=== PATIENT | male | born 1955 | race Caucasian/White ===

== ENCOUNTER 2020-04-01 20:57 | Inpatient (IN) | payer BC, SELFPAY ==
[~2020-04-01] VITALS: Ht 188 cm; Wt 95.0 kg
[~2020-04-01 20:57] MED LIST: AMA1T PO; ASPI-1265 PO; CARI350T PO; METF500T PO; NORCO10T PO; PER10325T PO; PIOG45TA PO; TEST5GEL6 TD; ZOC40T PO
[2020-04-01] MEDS ORDERED: GLIM4TAB7 PO (21:32)
[2020-04-01] MEDS ORDERED: LANS30CA56 PO (21:32)
[2020-04-01] MEDS ORDERED: TADA10TA PO (21:32)
[2020-04-01] MEDS ORDERED: FLUT25PO12 IH (21:32)
[2020-04-01] MEDS ORDERED: DULA1.5P PO (21:32)
[2020-04-01] MEDS ORDERED: EMPA10TA PO (21:32)
[2020-04-01] MEDS ORDERED: AZEL137S4 BOTHNARES (21:32)
[2020-04-01] MEDS ORDERED: normal saline 1000ML IV soln IVB ONE (21:45)
--- NOTE | 2020-04-01 21:49 | NUR ---
RT AT BEDSIDE TO INITIATE ABG.
--- NOTE | 2020-04-01 21:55 | NUR ---
XR AT BEDSIDE
--- NOTE | 2020-04-01 21:56 | NUR ---
EKG read by MD Kaur @ 2156 - @ [facility]
[2020-04-01] MEDS ORDERED: azithromycin/NS 500mg/250ml 250 ML IV ONE (22:05)
[2020-04-01] MEDS ORDERED: CefTRIAXone/D5W-Rocephin 1gm 50 ML IV ONE (22:05)
[2020-04-01 22:07] LABS: BASOPHILS % (AUTO) 0.3 % (0-1); EOSINOPHILS % (AUTO) 0 % (0-6); HEMATOCRIT 41.4 % (42.0-52.0); HEMOGLOBIN 13.6 g/dl (14.0-17.9); LYMPHOCYTES # (AUTO) 0.3 X10'3 (1.1-4.8); LYMPHOCYTES % (AUTO) 2.8 % (21-51); MEAN CORPUSCULAR HEMOGLOBIN 26.7 PG (27.0-31.0); MEAN CORPUSCULAR HGB CONC 32.8 g/dL (33.0-36.5); MEAN CORPUSCULAR VOLUME 81.3 FL (78-98); MEAN PLATELET VOLUME 8.4 FL (7.4-10.4); MONOCYTES # (AUTO) 0.9 X10'3 (0-0.9); MONOCYTES % (AUTO) 7.9 % (2-12); NEUTROPHILS # (AUTO) 9.6 X10'3 (1.8-7.7); PLATELET COUNT 189 X10'3 (140-440); WHITE BLOOD COUNT 10.8 X10'3 (4.5-11.0)
[2020-04-01] MEDS ORDERED: normal saline 1000ml 1,000 ML IV ONE (22:10)
[2020-04-01 22:16] LABS: PARTIAL THROMBOPLASTIN TIME 34 SECONDS (22-32)
[2020-04-01 22:19] LABS: ALANINE AMINOTRANSFERASE 63 U/L (12-78); ALBUMIN/GLOBULIN RATIO 0.8 (1.1-1.5); ALKALINE PHOSPHATASE 63 IU/L (46-116); ANION GAP 8 (8-16); ASPARTATE AMINO TRANSFERASE 47 U/L (10-37); BILIRUBIN,TOTAL 0.6 MG/DL (0.1-1.0); BLOOD UREA NITROGEN 22 MG/DL (7-18); BUN/CREATININE RATIO 15.5 (5.4-32.0); CALCIUM 8.4 MG/DL (8.5-10.1); CHLORIDE 96 MMOL/L (99-107); CREATININE 1.42 MG/DL (0.60-1.10); GLUCOSE 277 MG/DL (70-104); POTASSIUM 4.4 MMOL/L (3.5-5.1); SODIUM 131 MMOL/L (135-145); TOTAL CARBON DIOXIDE 27.2 MMOL/L (24-32); TOTAL PROTEIN 6.6 G/DL (6.4-8.2); eGFR 50 ML/MIN
[2020-04-01 22:20] LABS: ABG HCO3 23.6 mmol/L (22.0-26.0); ABG OXYGEN SATURATION 97.1 % (95-98); ABG PCO2 (T) 41.4 mmHg (35.0-45.0); ABG PH (T) 7.379 (7.350-7.450); ABG PO2 (T) 100.8 mmHg (83-108); ALLEN'S TEST POSITIVE; FCOHb 0.8 % (0.5-1.5); FO2Hb 96.3 % (94-100); PATIENT TEMPERATURE 38.4; RESPIRATORY RATE 18 b/min; TOTAL HEMOGLOBIN 13.7 G/dl (14.0-17.9)
--- NOTE | 2020-04-01 22:22 | NUR ---
PT UNDERSTANDS NEED FOR URINE COLLECTION.
[2020-04-01 22:44] LABS: CLARITY,URINE CLEAR (Clear); COLOR,URINE YELLOW (Yellow); GLUCOSE, URINE >=1000 mg/dl (Neg); KETONES,URINE 15 mg/dl (Neg); LEUKOCYTE ESTERASE ,URINE NEGATIVE (Neg); NITRITES, URINE NEGATIVE (Neg); OCCULT BLOOD,URINE MODERATE (Neg); PROTEIN,URINE 30 mg/dl (Neg); UROBILINOGEN,URINE 0.2 E.U/dL (0.2-1.0)
[2020-04-01 22:49] LABS: UA COLLECTION TYPE CLN CATCH MIDSTREAM
[2020-04-01 22:51] LABS: BACTERIA,URINE NONE SEEN /HPF (Neg); WBC,URINE 0-4 /HPF (0-4)
[2020-04-01 22:52] LABS: RENAL CELLS, URINE FEW /HPF; SQUAMOUS EPITHELIAL CELL,UR FEW /LPF (FEW)
[2020-04-01] MEDS: normal saline 1000ml 1,000 ML IV SCH (23:28)
[2020-04-01] MEDS ORDERED: potassium CL 10mEq/100ml bag 100 ML IV PRN ×2 (23:30)
[2020-04-01] MEDS ORDERED: magnesium hydroxide 30ml (MOM) UD suspension PO PRN (23:30)
[2020-04-01] MEDS ORDERED: potassium Cl 20 mEq SR tablet PO PRN ×2 (23:30)
[2020-04-01] MEDS ORDERED: ondansetron/PF 4mg/2ml inj IV PRN (23:30)
[2020-04-01] MEDS ORDERED: acetaminophen 325mg tablet PO PRN (23:30)
[2020-04-01] MEDS ORDERED: mag hydrox/Alum hydrox/simeth 30ml oral suspension PO PRN (23:30)
[2020-04-01] MEDS ORDERED: oxyCODONE/APAP 10/325mg tablet PO PRN (23:35)
[2020-04-01] MEDS ORDERED: MESSAGE TO PHARMACY PO ONE (23:35)
[2020-04-01] MEDS ORDERED: dextrose 50%-water 50ml dispensing syringe IV PRN ×2 (23:35)
[2020-04-01] MEDS ORDERED: dextrose ORAL solution 15 GM/59 ML bottle PO PRN ×2 (23:35)
[2020-04-01] MEDS ORDERED: glucagon, human recombinant 1mg kit SUBCUT PRN (23:35)
[2020-04-01] MEDS ORDERED: insulin Lispro (HumaLOG) vial - multi-dose SQ SCH (23:35)
[2020-04-01] MEDS ORDERED: HYDROcodone/acetaminophen 10/325mg tab PO PRN (23:35)
--- NOTE | 2020-04-01 23:35 | NUR ---
RAPID CORONAVIRUS SWAB COMPLETED AND SUBMITTED TO LABORATORY.
[2020-04-01 23:57] LABS: HEMOGLOBIN A1C 7.3 % (4.5-6.2)
[2020-04-02] VITALS (7 sets, daily range): BP systolic 129–165; BP diastolic 62–77
--- NOTE | 2020-04-02 03:37 | NUR ---
Patient did not want to wear Cpap/Bipap tonight
[2020-04-02] MEDS ORDERED: guaiFENesin/DM/phenylephrine syrup 120ml bottle PO PRN (03:40)
[2020-04-02] MEDS ORDERED: guaiFENesin/DM 10ml UD oral syrup PO PRN (04:10)
[2020-04-02] MEDS: guaiFENesin 200 MG/10 ML oral syrup UD cup PO PRN (04:17)
[2020-04-02 05:55] LABS: BASOPHILS % (AUTO) 0.1 % (0-1); EOSINOPHILS % (AUTO) 0 % (0-6); HEMATOCRIT 40.3 % (42.0-52.0); HEMOGLOBIN 13.1 g/dl (14.0-17.9); LYMPHOCYTES # (AUTO) 0.4 X10'3 (1.1-4.8); LYMPHOCYTES % (AUTO) 4.6 % (21-51); MEAN CORPUSCULAR HEMOGLOBIN 26.5 PG (27.0-31.0); MEAN CORPUSCULAR HGB CONC 32.6 g/dL (33.0-36.5); MEAN CORPUSCULAR VOLUME 81.4 FL (78-98); MEAN PLATELET VOLUME 8.3 FL (7.4-10.4); MONOCYTES # (AUTO) 0.7 X10'3 (0-0.9); MONOCYTES % (AUTO) 7.1 % (2-12); NEUTROPHILS # (AUTO) 8.2 X10'3 (1.8-7.7); NEUTROPHILS % (AUTO) 88.2 % (42-75); PLATELET COUNT 195 X10'3 (140-440); RED BLOOD COUNT 4.95 X10'6 (4.70-6.10); RED CELL DISTRIBUTION WIDTH 15.8 % (11.5-14.5); WHITE BLOOD COUNT 9.3 X10'3 (4.5-11.0)
[2020-04-02 06:03] LABS: ALANINE AMINOTRANSFERASE 74 U/L (12-78); ALBUMIN 2.7 G/DL (3.4-5.0); ALBUMIN/GLOBULIN RATIO 0.7 (1.1-1.5); ALKALINE PHOSPHATASE 56 IU/L (46-116); ANION GAP 9 (8-16); ASPARTATE AMINO TRANSFERASE 59 U/L (10-37); BILIRUBIN,TOTAL 0.5 MG/DL (0.1-1.0); BLOOD UREA NITROGEN 18 MG/DL (7-18); BUN/CREATININE RATIO 14.6 (5.4-32.0); CHLORIDE 101 MMOL/L (99-107); CREATININE 1.23 MG/DL (0.60-1.10); GLUCOSE 139 MG/DL (70-104); POTASSIUM 4.5 MMOL/L (3.5-5.1); SODIUM 138 MMOL/L (135-145); TOTAL CARBON DIOXIDE 27.7 MMOL/L (24-32); TOTAL PROTEIN 6.4 G/DL (6.4-8.2); eGFR 59 ML/MIN
--- NOTE | 2020-04-02 06:19 | NUR ---
Problems reprioritized. Patient report given, questions answered & plan of care reviewed with ATILIO Rothman.
--- NOTE | 2020-04-02 06:20 | NUR ---
Patient in room PCU 3013B. I have received report from Felicita TRIMBLE and had the opportunity to ask questions and assume patient care. Patient laying in bed, awake, alert, texting on cell phone, no signs of distress, no complaints at this time. Will continue to monitor.
[2020-04-02] MEDS: K and/or MAG REPLACEMENT MC SCH ×4 (08:00→20:00)
[2020-04-02] MEDS ORDERED: azelastine Nasal Spray bottle NS SCH (08:00)
[2020-04-02] MEDS ORDERED: CefTRIAXone/D5W-Rocephin 1gm 50 ML IV SCH (08:00)
[2020-04-02] MEDS ORDERED: azithromycin 250mg tablet PO SCH (08:00)
--- NOTE | 2020-04-02 08:08 | NUR ---
PAGER ID: [phone] MESSAGE: Lorna Michel jamar [phone]. RE Abhijit Hubbard FTI patient is having 5-7 beat runs of v tach as well as consistent ventricular ectopy/bigeminy. Pt asymptomatic. HR 120-150's. Order is for 24 hr tele. Any interventions? Can we extend tele order? Thanks!
[2020-04-02] MEDS: fluticasone nasal spray 16GM bottle NS SCH (08:25)
[2020-04-02] MEDS: heparin, porcine 5000 units/ml vial SQ SCH ×2 (08:26→19:12)
[2020-04-02] MEDS: atorvastatin 20mg tablet PO SCH (08:26)
[2020-04-02] MEDS: aspirin 81mg tab.chew PO SCH (08:26)
[2020-04-02] MEDS: pantoprazole 40mg Tablet.DR PO SCH (08:26)
[2020-04-02] MEDS ORDERED: magnesium 4gm in 100ml NS 100 ML IV PRN (09:50)
[2020-04-02] MEDS ORDERED: magnesium Cl slow-release 64mg tablet PO PRN (09:50)
[2020-04-02] MEDS: levoFLOXACIN-Levaquin 750MG/D5 150 ML IV SCH (10:18)
[2020-04-02] MEDS: normal saline 1000ml 1,000 ML IV SCH (10:18)
[2020-04-02] MEDS ORDERED: metoprolol succinate 25mg (24-HOUR) SR. Tablet PO ONE (11:10)
--- NOTE | 2020-04-02 12:00 | NUR ---
PATIENT WAS STANDING UP USING THE URINAL, ATTEMPTED TO TAKE A FEW STEPS AND STUMBLED INTO THE WALL. HE WAS ABLE TO CATCH HIMSELF ON THE WALL AND DID NOT FALL TO THE GROUND OR HIT HIS HEAD. THIS WAS WITNESSED BY EVS AND [employer] SUPERVISOR THAT WERE IN THE ROOM AT THIS TIME. PATIENT ASSISTED BACK TO BED, GIVEN CLEAN GOWN. PATIENT IS AWAKE, ALERT, ORIENTED BUT IS SLIGHTLY FORGETFUL AND DOES NOT ASK FOR ASSISTANCE. EXPLAINED TO PATIENT THAT HE NEEDS TO CALL FOR HELP AND CANNOT WALK AROUND BY HIMSELF. PATIENT UNDERSTANDS. [employer] MEMBER[employer], NOTIFIED AT THIS TIME WELL AND I HAVE REQUESTED TO MOVE PATIENT TO ROOM CLOSER TO NURSING STATION. PENDING MOVEMENT TO CLEAN ROOM AT THIS TIME. CALL LIGHT AND ALL ITEMS IN REACH, FREQUENT ROUNDING IN PLACE.
--- NOTE | 2020-04-02 15:52 | NUR ---
Pt with T2DM, current A1c is 7.3%. Attempted visit with patient at bedside however pt unavailable. Will f/u at another time for DM education. Addendum: 04/02/20 at [address] Amended: Links added.
--- NOTE | 2020-04-02 18:20 | NUR ---
Problems reprioritized. Patient report given, questions answered & plan of care reviewed with Star RN.
--- NOTE | 2020-04-02 18:26 | NUR ---
Patient in room PCU 3013. I have received report from Lorna Adams RN and had the opportunity to ask questions and assume patient care.
--- NOTE | 2020-04-02 18:52 | NUR ---
INSULIN HELD pt had a BS of 209 with lunch, pt was then given only 3 units of insulin (pt stated that he does not take insulin at home and the dose was reduced for safety concerns) and the dinner BS was 148. discussed these findings with charge nurse and due to this patients apparent sensitivity to insulin we will restart protocol and wait for the pt to re-qualify. Addendum: 04/02/20 at 0 by Mk Cisneros RN spoke with pt in detail, he states that he takes a diabetic medication once per week and he stated that he takes it on fridays. this may explain the drastic drop in BS with little insulin. he does not remember the name of this medication.
[2020-04-02] MEDS: lactobacillus rhamnosus 10,000 MMU CELLS/CAPSULE PO SCH (19:12)
[2020-04-02] MEDS ORDERED: insulin glargine (Lantus) pen - multi-dose SQ SCH (21:00)
[2020-04-03] MEDS: normal saline 1000ml 1,000 ML IV SCH ×2 (00:48→11:53)
[2020-04-03 03:00] VITALS: BP 133/79
--- NOTE | 2020-04-03 03:26 | NUR ---
LATE ENTRY. Patient did not want to wear hospital bipap tonight wants to wait for family to bring in his unit.
--- NOTE | 2020-04-03 05:58 | NUR ---
PT CONFUSION pt has been intermittently confused since about midnight. pt becomes confused, when pt is made aware of his strange behavior he quickly reorients himself, when asked orientation questions he answers all questions appropriately.
[2020-04-03 06:00] VITALS: BP 137/70
--- NOTE | 2020-04-03 06:19 | NUR ---
Problems reprioritized. Patient report given, questions answered & plan of care reviewed with Lorna Adams RN.
--- NOTE | 2020-04-03 06:20 | NUR ---
Patient in room PCU 3013B. I have received report from [facility] RN and had the opportunity to ask questions and assume patient care. Patient laying in bed, awake, alert, wants to go home, no complaints of pain, no signs of distress at this time.
[2020-04-03 06:26] LABS: BASOPHILS % (AUTO) 0.2 % (0-1); EOSINOPHILS % (AUTO) 0 % (0-6); HEMOGLOBIN 12.2 g/dl (14.0-17.9); LYMPHOCYTES # (AUTO) 0.4 X10'3 (1.1-4.8); LYMPHOCYTES % (AUTO) 4.2 % (21-51); MEAN CORPUSCULAR HEMOGLOBIN 26.3 PG (27.0-31.0); MEAN CORPUSCULAR HGB CONC 32.2 g/dL (33.0-36.5); MEAN CORPUSCULAR VOLUME 81.6 FL (78-98); MEAN PLATELET VOLUME 8.6 FL (7.4-10.4); MONOCYTES % (AUTO) 10.1 % (2-12); NEUTROPHILS # (AUTO) 8.3 X10'3 (1.8-7.7); NEUTROPHILS % (AUTO) 85.5 % (42-75); PLATELET COUNT 199 X10'3 (140-440); RED BLOOD COUNT 4.66 X10'6 (4.70-6.10); RED CELL DISTRIBUTION WIDTH 16.1 % (11.5-14.5); WHITE BLOOD COUNT 9.8 X10'3 (4.5-11.0)
[2020-04-03 06:31] LABS: ALANINE AMINOTRANSFERASE 76 U/L (12-78); ALBUMIN 2.4 G/DL (3.4-5.0); ALBUMIN/GLOBULIN RATIO 0.8 (1.1-1.5); ALKALINE PHOSPHATASE 58 IU/L (46-116); ANION GAP 12 (8-16); ASPARTATE AMINO TRANSFERASE 55 U/L (10-37); BILIRUBIN,TOTAL 0.5 MG/DL (0.1-1.0); BLOOD UREA NITROGEN 17 MG/DL (7-18); BUN/CREATININE RATIO 14.4 (5.4-32.0); CALCIUM 8.1 MG/DL (8.5-10.1); CHLORIDE 100 MMOL/L (99-107); CREATININE 1.18 MG/DL (0.60-1.10); GLUCOSE 158 MG/DL (70-104); MAGNESIUM 2.3 MG/DL (1.5-2.4); PHOSPHORUS 1.8 MG/DL (2.3-4.5); POTASSIUM 4.6 MMOL/L (3.5-5.1); SODIUM 134 MMOL/L (135-145); TOTAL CARBON DIOXIDE 22.3 MMOL/L (24-32); TOTAL PROTEIN 5.6 G/DL (6.4-8.2); eGFR 62 ML/MIN
[2020-04-03] MEDS: levoFLOXACIN-Levaquin 750MG/D5 150 ML IV SCH (07:55)
[2020-04-03] MEDS: aspirin 81mg tab.chew PO SCH (07:56)
[2020-04-03] MEDS: pantoprazole 40mg Tablet.DR PO SCH (07:56)
[2020-04-03] MEDS: fluticasone nasal spray 16GM bottle NS SCH (07:56)
[2020-04-03] MEDS: atorvastatin 20mg tablet PO SCH (07:56)
[2020-04-03] MEDS: lactobacillus rhamnosus 10,000 MMU CELLS/CAPSULE PO SCH (07:57)
[2020-04-03] MEDS ORDERED: metoprolol succinate 25mg (24-HOUR) SR. Tablet PO SCH (08:00)
[2020-04-03] MEDS: K and/or MAG REPLACEMENT MC SCH ×2 (08:00)
[2020-04-03] MEDS: heparin, porcine 5000 units/ml vial SQ SCH (08:01)
[2020-04-03] MEDS: guaiFENesin 200 MG/10 ML oral syrup UD cup PO PRN (08:10)
[2020-04-03 11:00] VITALS: BP 154/73
[2020-04-03] MEDS ORDERED: METO-395 PO (13:29)
[2020-04-03] MEDS ORDERED: GUAI100L97 PO (13:29)
[2020-04-03] MEDS ORDERED: LACT1CAP26 PO (13:29)
[2020-04-03] MEDS ORDERED: LEVO750T46 PO (13:29)
--- NOTE | 2020-04-03 14:40 | NUR ---
Per MD order by Dr. Becerra, patient is stable for discharge home. Discharge packet printed and reviewed with the patient. New prescriptions sent to pharmacy of choice. IV removed and tele monitor removed. Discharge packet, return precautions, and follow up discussed with patient, all questions answered. All belongings sent with patient. Patient escorted via wheelchair to private vehicle to go home with family.
[2020-04-04] MEDS ORDERED: levoFLOXACIN 750MG TABLET PO SCH (08:00)
== END 2020-04-03 14:45 | disposition home or self-care (01) | DRG 195 ==
LOC: ER 20:59 → ED HOLD 23:28 → PCU 3S 04-02 00:50
PROVIDERS: ADMIT Internal Medicine; ATTEND Family Medicine
DX: J15.9 Unspecified bacterial pneumonia (principal); E11.9 Type 2 diabetes mellitus without complications; E78.5 Hyperlipidemia, unspecified; Z20.828 Contact with and (suspected) exposure to other viral communicable diseases; G47.33 Obstructive sleep apnea (adult) (pediatric); M54.9 Dorsalgia, unspecified; Z87.891 Personal history of nicotine dependence; Z88.8 Allergy status to other drugs, medicaments and biological substances; Z79.899 Other long term (current) drug therapy
CPT/HCPCS: 36415; 36600; 71045; 80053; 81001; 82803; 82948; 83036; 83605; 83735; 83880; 84100; 84145; 84484; 85018; 85025; 85610; 85730; 87040; 87081; 87502; 87503; 87635; 92508; 92616; 93005; 94668; 96365; 96375; 99285; G0378; J0456; J0696; J1644; J1815; J1956; J7030

== ENCOUNTER 2020-10-27 22:21 | Emergency (ER) | payer MEDICARE, BC ==
[~2020-10-27] VITALS: Ht 188 cm; Wt 93.2 kg
[~2020-10-27 22:21] MED LIST changes: -AMA1T PO; -CARI350T PO; +DULA1.5P PO; +EMPA10TA PO; +FLUT25PO12 IH; +GLIM4TAB7 PO; +GUAI100L97 PO; +LACT1CAP26 PO; +LANS30CA56 PO; +LEVO750T46 PO; +METO-395 PO; -PER10325T PO; -PIOG45TA PO; +TADA10TA PO; -TEST5GEL6 TD
[2020-10-27] MEDS ORDERED: diazepam inj 5 MG/ML inj. IV ONE (23:40)
[2020-10-27] MEDS ORDERED: ketorolac tromethamine 15mg/ml inj. IM ONE (23:40)
[2020-10-28 00:22] LABS: BASOPHILS % (AUTO) 0.1 % (0-1); EOSINOPHILS % (AUTO) 0.1 % (0-6); HEMATOCRIT 45.4 % (42.0-52.0); HEMOGLOBIN 14.9 g/dl (14.0-17.9); LYMPHOCYTES # (AUTO) 0.9 X10'3 (1.1-4.8); LYMPHOCYTES % (AUTO) 8.6 % (21-51); MEAN CORPUSCULAR HEMOGLOBIN 27.3 PG (27.0-31.0); MEAN CORPUSCULAR HGB CONC 32.8 g/dL (33.0-36.5); MEAN CORPUSCULAR VOLUME 83.1 FL (78-98); MEAN PLATELET VOLUME 8.9 FL (7.4-10.4); MONOCYTES # (AUTO) 1.2 X10'3 (0-0.9); MONOCYTES % (AUTO) 12.3 % (2-12); NEUTROPHILS # (AUTO) 7.9 X10'3 (1.8-7.7); NEUTROPHILS % (AUTO) 78.9 % (42-75); PLATELET COUNT 168 X10'3 (140-440); RED BLOOD COUNT 5.46 X10'6 (4.70-6.10); RED CELL DISTRIBUTION WIDTH 16.4 % (11.5-14.5)
[2020-10-28 00:25] LABS: ALANINE AMINOTRANSFERASE 25 U/L (12-78); ALBUMIN/GLOBULIN RATIO 1.4 (1.1-1.5); ALKALINE PHOSPHATASE 67 IU/L (46-116); ANION GAP 7 (8-16); ASPARTATE AMINO TRANSFERASE 15 U/L (10-37); BILIRUBIN,TOTAL 0.7 MG/DL (0.1-1.0); BLOOD UREA NITROGEN 17 MG/DL (7-18); BUN/CREATININE RATIO 18.7 (5.4-32.0); CALCIUM 9.3 MG/DL (8.5-10.1); CHLORIDE 104 MMOL/L (99-107); CREATININE 0.91 MG/DL (0.60-1.10); GLUCOSE 129 MG/DL (70-104); POTASSIUM 4.4 MMOL/L (3.5-5.1); SODIUM 141 MMOL/L (135-145); TOTAL CARBON DIOXIDE 29.6 MMOL/L (24-32); TOTAL PROTEIN 6.9 G/DL (6.4-8.2); eGFR 84 ML/MIN
[2020-10-28] MEDS ORDERED: IBUP-1984 PO (01:03)
[2020-10-28] MEDS ORDERED: ORPH100T2 PO (01:03)
[2020-10-28 01:11] VITALS: BP 148/86
== END 2020-10-28 01:14 | disposition home or self-care (01) ==
LOC: ER 22:22
DX: M54.5 Low back pain (principal); G89.29 Other chronic pain; R53.1 Weakness; Z79.899 Other long term (current) drug therapy; Z79.82 Long term (current) use of aspirin; Z79.2 Long term (current) use of antibiotics; Z88.8 Allergy status to other drugs, medicaments and biological substances
CPT/HCPCS: 36415; 72131; 80053; 85025; 96372; 96374; 99285; J1885; J3360; 99284

== ENCOUNTER 2020-10-29 17:00 | Emergency (ER) | payer MEDICARE, BC ==
[~2020-10-29] VITALS: Ht 188 cm; Wt 88.5 kg
[~2020-10-29 17:00] MED LIST changes: +IBUP-1984 PO; +ORPH100T2 PO
[2020-10-29 21:02] LABS: CLARITY,URINE CLEAR (Clear); COLOR,URINE YELLOW (Yellow); GLUCOSE, URINE >=1000 mg/dl (Neg); KETONES,URINE TRACE mg/dl (Neg); LEUKOCYTE ESTERASE ,URINE NEGATIVE (Neg); NITRITES, URINE NEGATIVE (Neg); OCCULT BLOOD,URINE NEGATIVE (Neg); PH,URINE 5.5 (4.8-8.0); PROTEIN,URINE NEGATIVE (Neg); UROBILINOGEN,URINE 0.2 E.U/dL (0.2-1.0)
[2020-10-29 21:10] LABS: UA COLLECTION TYPE URINAL
[2020-10-29 21:11] LABS: BACTERIA,URINE NONE SEEN /HPF (Neg); RBC,URINE 0-2 /HPF (0-2); SQUAMOUS EPITHELIAL CELL,UR FEW /LPF (FEW); WBC,URINE NONE SEEN /HPF (0-4)
[2020-10-29 21:24] VITALS: BP 133/74
[2020-10-29] MEDS ORDERED: BUPIVAcaine/PF 7.5 mg/ml (0.75%) 30ml vial IJ ONE (23:30)
[2020-10-30] MEDS ORDERED: ondansetron 4mg rapidly disintigrating tab PO ONE (00:15)
[2020-10-30] MEDS ORDERED: HYDROcodone/acetaminophen 5mg/325mg tablet PO ONE (00:15)
[2020-10-30] MEDS ORDERED: diazepam 5mg tablet PO ONE (00:15)
[2020-10-30] MEDS ORDERED: DIAZ-351 PO (00:16)
[2020-10-30] MEDS ORDERED: WALKERFR (00:26)
--- NOTE | 2020-10-30 00:46 | NUR ---
pt not able to get out of bed and so DR SIMON TO Bedsidde so i adm meds and will try again in #) MIN
--- NOTE | 2020-10-30 01:32 | NUR ---
LSO brace applied by log rolling patient side to side. Pt then log rolled to side and assisted to a sitting position. Pt stated he was still experiencing pain, but pain was decreased with the LSO brace in place. Pt had difficult time standing; when he put weight on his feet, he experienced a great deal of pain just to the right of his lower spine. Pt was able to stand and transfer to a wheel chair.
== END 2020-10-30 01:38 | disposition home or self-care (01) ==
LOC: ER 17:00
DX: S39.012A Strain of muscle, fascia and tendon of lower back, initial encounter (principal); G89.29 Other chronic pain; Z88.5 Allergy status to narcotic agent; Z79.899 Other long term (current) drug therapy; Z79.82 Long term (current) use of aspirin; X58.XXXA Exposure to other specified factors, initial encounter; Y93.89 Activity, other specified; Y92.89 Other specified places as the place of occurrence of the external cause; Y99.8 Other external cause status; E11.9 Type 2 diabetes mellitus without complications
CPT/HCPCS: 20553; 81001; 99284

== ENCOUNTER 2020-11-30 12:35 | Outpatient (CLI) | payer MEDICARE, BC ==
[~2020-11-30 12:35] MED LIST changes: +DIAZ-351 PO; -IBUP-1984 PO; +WALKERFR
[2020-11-30 13:42] LABS: BASOPHILS % (AUTO) 0.4 % (0-1); EOSINOPHILS % (AUTO) 0.4 % (0-6); HEMATOCRIT 45.8 % (42.0-52.0); HEMOGLOBIN 14.8 g/dl (14.0-17.9); LYMPHOCYTES # (AUTO) 1.1 X10'3 (1.1-4.8); LYMPHOCYTES % (AUTO) 15.1 % (21-51); MEAN CORPUSCULAR HEMOGLOBIN 27.1 PG (27.0-31.0); MEAN CORPUSCULAR HGB CONC 32.3 g/dL (33.0-36.5); MEAN CORPUSCULAR VOLUME 83.8 FL (78-98); MEAN PLATELET VOLUME 8.3 FL (7.4-10.4); MONOCYTES # (AUTO) 0.7 X10'3 (0-0.9); MONOCYTES % (AUTO) 8.9 % (2-12); NEUTROPHILS # (AUTO) 5.6 X10'3 (1.8-7.7); NEUTROPHILS % (AUTO) 75.2 % (42-75); PLATELET COUNT 230 X10'3 (140-440); RED BLOOD COUNT 5.46 X10'6 (4.70-6.10); RED CELL DISTRIBUTION WIDTH 16.6 % (11.5-14.5); WHITE BLOOD COUNT 7.5 X10'3 (4.5-11.0)
== END 2020-11-30 23:59 | disposition home or self-care (01) ==
LOC: LAB 12:35
PROVIDERS: ATTEND Pediatrics Sports Medicine
DX: M54.16 Radiculopathy, lumbar region (principal); M54.5 Low back pain
CPT/HCPCS: 36415; 85025; 85651; 86140; 87040

== ENCOUNTER 2020-12-15 06:19 | Day surgery (SDC) | payer MEDICARE, BC ==
[2020-12-15] VITALS (16 sets, daily range): BP systolic 120–144; BP diastolic 47–122
[~2020-12-15] VITALS: Ht 190.5 cm; Wt 85.5 kg
[2020-12-15] MEDS ORDERED: normal saline 1000ml 1,000 ML IV SCH (06:55)
[2020-12-15] MEDS ORDERED: OMEG1CAP2 (07:02)
[2020-12-15] MEDS ORDERED: IBUP-2697 PO (07:02)
[2020-12-15] MEDS ORDERED: BACL-11 PO (07:02)
[2020-12-15] MEDS ORDERED: GABA300C PO (07:02)
[2020-12-15] MEDS ORDERED: midazolam 2 mg/2 ml injection ONE ×2 (08:46→09:14)
[2020-12-15] MEDS ORDERED: fentaNYL/PF 50MCG/1 ML 2ML syringe ONE ×2 (08:46→09:14)
--- NOTE | 2020-12-15 10:21 | NUR ---
Pt sitting up at 45 degrees eating breakfast tray. VS stable as charted, will continue to monitor.
== END 2020-12-15 10:55 | disposition home or self-care (01) ==
LOC: SSTAY O 06:19
PROVIDERS: ATTEND Radiology Diagnostic Radiology
DX: M46.46 Discitis, unspecified, lumbar region (principal); Z20.822 Contact with and (suspected) exposure to COVID-19
CPT/HCPCS: 36415; 62267; 77012; 82948; 87070; 87077; 87186; 87635; 99152; 99153; J2250; J3010; 20225

== ENCOUNTER 2021-02-11 10:40 | Outpatient (CLI) | payer MEDICARE, BC ==
[~2021-02-11 10:40] MED LIST changes: -ASPI-1265 PO; +BACL-11 PO; -DIAZ-351 PO; -FLUT25PO12 IH; +GABA300C PO; -GUAI100L97 PO; +IBUP-2697 PO; -LACT1CAP26 PO; -LANS30CA56 PO; -LEVO750T46 PO; -METF500T PO; -METO-395 PO; +OMEG1CAP2; -ORPH100T2 PO; -TADA10TA PO
[2021-02-11 11:28] LABS: BASOPHILS % (AUTO) 0.8 % (0-1); EOSINOPHILS # (AUTO) 0.1 X10'3 (0-0.9); EOSINOPHILS % (AUTO) 2.2 % (0-6); HEMATOCRIT 44.1 % (42.0-52.0); LYMPHOCYTES % (AUTO) 20.1 % (21-51); MEAN CORPUSCULAR HEMOGLOBIN 26.7 PG (27.0-31.0); MEAN CORPUSCULAR HGB CONC 31.9 g/dL (33.0-36.5); MEAN CORPUSCULAR VOLUME 83.7 FL (78-98); MEAN PLATELET VOLUME 9.5 FL (7.4-10.4); MONOCYTES # (AUTO) 0.5 X10'3 (0-0.9); MONOCYTES % (AUTO) 9.3 % (2-12); NEUTROPHILS # (AUTO) 3.4 X10'3 (1.8-7.7); NEUTROPHILS % (AUTO) 67.6 % (42-75); PLATELET COUNT 170 X10'3 (140-440); RED BLOOD COUNT 5.27 X10'6 (4.70-6.10)
[2021-02-11 13:27] LABS: ANION GAP 12 (8-16); BLOOD UREA NITROGEN 19 MG/DL (7-18); BUN/CREATININE RATIO 22.9 (5.4-32.0); CALCIUM 8.6 MG/DL (8.5-10.1); CHLORIDE 107 MMOL/L (99-107); CREATININE 0.83 MG/DL (0.60-1.10); GLUCOSE 173 MG/DL (70-104); POTASSIUM 4.6 MMOL/L (3.5-5.1); SODIUM 145 MMOL/L (135-145); TOTAL CARBON DIOXIDE 26.3 MMOL/L (24-32); eGFR > 90 ML/MIN
== END 2021-02-11 23:59 | disposition home or self-care (01) ==
LOC: LAB 10:40
PROVIDERS: ATTEND Internal Medicine Infectious Disease
DX: M46.26 Osteomyelitis of vertebra, lumbar region (principal)
CPT/HCPCS: 36415; 80048; 85025; 85651; 86140

== ENCOUNTER 2022-08-29 09:17 | Day surgery (SDC) | payer MEDICARE, BC ==
[2022-08-29] VITALS (11 sets, daily range): BP systolic 116–152; BP diastolic 59–88
[~2022-08-29] VITALS: Ht 190.5 cm; Wt 92.7 kg
[~2022-08-29 09:17] MED LIST changes: +ASPI-611 PO; +DOCUMENT DATE & TIME OF BETA-BLOCKER PO ONE; -DULA1.5P PO; +DULA1.5P SQ; -GABA300C PO; -IBUP-2697 PO; +LANS30CA56 PO; +LIDOCAINE 1%/EPI 1:100,000 inj. 10 ML multi-dose vial ONE; +METF-436 PO; +METO-384 PO; +MULT-1085 PO; +SACU1TAB PO; -WALKERFR; +cocaine 4% topical solution 4ml bottle ONE; +famotidine 20mg tablet PO ONE; +mupirocin 2% ointment 22GM ONE; +oxymetazoline 15 ML nasal spray NS ONE; +oxymetazoline 15 ML nasal spray NS SCH; +ringers solution, lacted 1,000 ML IV SCH
[2022-08-29] MEDS ORDERED: tranexamic acid 100mg/ml inj. ONE (10:19)
[2022-08-29] MEDS ORDERED: propofol inj 20 ML IV ONE (13:21)
[2022-08-29] MEDS ORDERED: midazolam 1 mg/ML 2ml injection ONE (13:21)
[2022-08-29] MEDS ORDERED: fentaNYL/PF 50MCG/1 ML 2ML syringe ONE ×2 (13:21→13:57)
[2022-08-29] MEDS ORDERED: sevoflurane 250ml liquid IH ONE (13:38)
[2022-08-29] MEDS ORDERED: dexamethasone sod phosphate 4mg/ml inj. ONE (14:04)
[2022-08-29] MEDS ORDERED: morphine 4 MG/ML inj SYRINge IV PRN (14:15)
[2022-08-29] MEDS ORDERED: meperidine/PF 25mg/ml syringe IV PRN ×2 (14:15)
[2022-08-29] MEDS ORDERED: morphine 2 MG/ML inj. syringe IV PRN (14:15)
[2022-08-29] MEDS ORDERED: ondansetron/PF 4mg/2ml inj IV PRN (14:15)
[2022-08-29] MEDS ORDERED: ringers solution, lacted 1,000 ML IV SCH (14:15)
[2022-08-29] MEDS ORDERED: labetalol 20mg/4ml (5mg/ml) syringe IV PRN (14:15)
[2022-08-29] MEDS ORDERED: hydrALAZINE 20mg/ml inj. IV PRN (14:15)
[2022-08-29] MEDS ORDERED: cefTAZidime inj. 1 GM in normal saline 100ml IV soln 100 ML IV ONE (14:20)
[2022-08-29] MEDS ORDERED: ondansetron/PF 4mg/2ml inj ONE (15:10)
[2022-08-29] MEDS ORDERED: salt irrigation nasal spray 45 ML SPRAY NS PRN (15:40)
--- NOTE | 2022-08-29 15:45 | NUR ---
TOOK OVER PATIENTS CARE FROM ATILIO ISRAEL. Addendum: 08/29/22 at 1718 by Marla Hinojosa RN Amended: Links added.
--- NOTE | 2022-08-29 17:43 | NUR ---
PATIENT DISCHARGED FROM THE PACU IN STABLE CONDITION AFTER WRITTEN AND VERBAL DISCHARGE INSTRUCTION GIVEN. PATIENT GAVE VERBAL UNDERSTANDING OF INSTRUCTIONS GIVEN. PATIENT LEFT FACILITY VIA WHEELCHAIR WITH RN AND PERSONAL BELONGINGS. Addendum: 08/29/22 at 1743 by Marla Hinojosa RN Amended: Links added.
[2022-08-29] MEDS ORDERED: mupirocin 2% nasal ointment 1gm UD NS ONE (20:00)
== END 2022-08-29 16:51 | disposition home or self-care (01) ==
LOC: PAS 09:17
PROVIDERS: ATTEND Otolaryngology
DX: J32.9 Chronic sinusitis, unspecified (principal); J32.2 Chronic ethmoidal sinusitis; J32.0 Chronic maxillary sinusitis; Z79.899 Other long term (current) drug therapy; E11.9 Type 2 diabetes mellitus without complications; Z20.822 Contact with and (suspected) exposure to COVID-19
CPT/HCPCS: 31255; 31299; 36415; 82948; 87070; 87075; 87077; 87102; 87107; 87186; 87635; A6402; C9250; C9803; J0713; J1100; J2250; J2405; J2704; J3010; J3490; J7030; J7050; J7120; U0003; U0005; Z7506; Z7508; Z7512; 88304; 88311; 88312; A4618; A6449; A7000